=== PATIENT | female | born 1945 | race Hispanic/Latino ===

== ENCOUNTER 2017-10-30 08:25 | Outpatient (CLI) | payer MEDICARE ==
[2017-10-30 08:40] LABS: Hematocrit 42.7 % (30.3-42.9); Hemoglobin 13.5 gm/dl (10.1-14.3); Mean Corpuscular HGB Conc 32 % (30-34); Mean Corpuscular Hemoglobin 28 pg (28-32); Mean Corpuscular Volume 87 fl (79-97); Platelet Count 218 K/mm3 (140-440); Red Blood Count 4.91 M/mm3 (3.65-5.03)
[2017-10-30 08:57] LABS: Alanine Aminotransferase 17 units/L (7-56); Albumin 3.8 g/dL (3.9-5); BUN/Creatinine Ratio 19; Blood Urea Nitrogen 15 mg/dL (7-17); Hemolysis Index 10
--- NOTE | 2017-10-30 12:13 | Cat Scan Report ---
CT ABDOMEN PELVIS WITH CONTRAST: HISTORY: abdominal pain. COMPARISON: none. TECHNIQUE: Helical CT in 1.25mm intervals following IV contrast. Sagittal and coronal reconstructions. FINDINGS: Lung bases: Adequately aerated. Normal heart size. Liver: Mild diffuse fatty infiltration is identified throughout the liver. No evidence for enlargement, mass or surface nodularity. Biliary system: Cholecystectomy changes. No biliary dilatation identified. Pancreas: Normal. Spleen: Normal. Kidneys/ureters/bladder: Normal. Adrenal glands: Normal. Aorta: Mild diffuse calcifications. No aneurysm or dissection. Intestines: There are scattered diverticula in the sigmoid colon. No evidence for focal inflammation or obstruction. Appendix: Normal. Pelvic viscera: Hysterectomy changes. Ascites: None. Adenopathy: None. Musculoskeletal: Mild osteopenia. Mild to moderate thoracolumbar spondylosis. No evidence for fracture or suspicious bony lesion. IMPRESSION: No acute inflammatory process is identified in the abdomen or pelvis. Hepatic steatosis. Sigmoid diverticulosis. Hysterectomy. Cholecystectomy.
== END 2017-10-30 08:26 | disposition home or self-care (01) ==
LOC: CT 08:25
PROVIDERS: ATTEND Surgery
DX: K76.0 Fatty (change of) liver, not elsewhere classified (principal); K57.30 Diverticulosis of large intestine without perforation or abscess without bleeding; I70.0 Atherosclerosis of aorta; M47.895 Other spondylosis, thoracolumbar region; M85.88 Other specified disorders of bone density and structure, other site; Z90.49 Acquired absence of other specified parts of digestive tract; Z90.710 Acquired absence of both cervix and uterus
CPT/HCPCS: 36415; 74177; 80053; 85027; Q9967